=== PATIENT | female | born 1995 | race Caucasian/White ===

== ENCOUNTER 2018-09-16 10:34 | Emergency (ER) | payer SELFPAY ==
[~2018-09-16] VITALS: Ht 170.2 cm; Wt 72.6 kg
[2018-09-16] MEDS ORDERED: ALBUTEROL SULF 2.5 MG/0.5ML(0.5%) NEB SOLN NEB ONE (10:45)
[2018-09-16] MEDS ORDERED: IPRATROPIUM BROM 0.5 MG/2.5ML INH SOL NEB ONE (10:45)
[2018-09-16] MEDS ORDERED: methylPREDNISolone SOD SUCC 125 MG/2 ML VL IV ONE (11:15)
[2018-09-16 12:15] VITALS: BP 120/85
[2018-09-16] MEDS ORDERED: ONDANSETRON ODT 4 MG TAB PO ONE (12:15)
== END 2018-09-16 12:53 | disposition home or self-care (01) ==
LOC: ER 10:43
DX: J45.909 Unspecified asthma, uncomplicated (principal)
CPT/HCPCS: 71046; 94640; 96374; 99283; J2930; J7611; J7644; Q0162

== ENCOUNTER 2018-09-18 06:54 | Emergency (ER) | payer MEDICAID, OTHER ==
[~2018-09-18] VITALS: Ht 170.2 cm; Wt 74.8 kg
[2018-09-18 08:06] VITALS: BP 148/97
[2018-09-18] MEDS ORDERED: cefTRIAXone SOD 1,000 MG VL IM ONE (08:15)
[2018-09-18] MEDS ORDERED: LIDOCAINE 1% HCL (LOCAL ANESTH.) INJ 20ML MDV IJ ONE (08:30)
== END 2018-09-18 08:35 | disposition home or self-care (01) ==
LOC: ER 07:01
DX: J45.909 Unspecified asthma, uncomplicated (principal); J18.9 Pneumonia, unspecified organism
CPT/HCPCS: 96372; 99283; J0696; J2001

== ENCOUNTER 2019-01-12 04:15 | Emergency (ER) | payer MEDICAID ==
[~2019-01-12] VITALS: Ht 170.2 cm; Wt 72.6 kg
[2019-01-12] MEDS ORDERED: ALPRAZolam 0.5 MG TAB PO ONE (04:45)
[2019-01-12 05:10] VITALS: BP 125/80
[2019-01-12] MEDS ORDERED: ONDANSETRON HCL 4 MG/2 ML VIAL IV ONE (05:15)
[2019-01-12 05:40] LABS: Urine Bacteria FEW /hpf (None Seen); Urine Blood Negative /uL (Negative); Urine Specific Gravity 1.004 (1.001-1.035); Urine WBC 1 /hpf (0 - 5)
[2019-01-12] MEDS ORDERED: ONDANSETRON HCL 4 MG/2 ML VIAL IM ONE (06:15)
== END 2019-01-12 05:50 | disposition home or self-care (01) ==
LOC: ER 04:15 → EDBD 04:15 → ER 05:50
DX: F41.9 Anxiety disorder, unspecified (principal); R11.0 Nausea; J45.909 Unspecified asthma, uncomplicated
CPT/HCPCS: 81001; 93005; 96372; 99284; J2405

== ENCOUNTER 2019-01-16 13:36 | Emergency (ER) | payer MEDICAID ==
[~2019-01-16] VITALS: Ht 170.2 cm; Wt 72.6 kg
[2019-01-16 15:18] VITALS: BP 129/100
[2019-01-16] MEDS ORDERED: diphenhdrAMINE HCL 50 MG/1 ML VL IM ONE (15:45)
[2019-01-16] MEDS ORDERED: PROMETHAZINE HCL 25 MG/ML 1ML IM ONE (15:45)
== END 2019-01-16 16:49 | disposition home or self-care (01) ==
LOC: ER 13:40
DX: F41.1 Generalized anxiety disorder (principal); J45.909 Unspecified asthma, uncomplicated; R10.13 Epigastric pain; R11.2 Nausea with vomiting, unspecified
CPT/HCPCS: 96372; 99284; J1200; J2550

== ENCOUNTER 2022-07-28 18:26 | Emergency (ER) | payer MEDICAID ==
[~2022-07-28] VITALS: Ht 170.2 cm; Wt 90.0 kg
[2022-07-28 18:36] VITALS: BP 116/75
== END 2022-07-28 22:22 | disposition left against medical advice (07) ==
LOC: ER 18:26
DX: R20.2 Paresthesia of skin (principal); Z53.21 Procedure and treatment not carried out due to patient leaving prior to being seen by health care provider